=== PATIENT | female | born 2000 | race Caucasian/White ===

== ENCOUNTER 2019-03-04 21:14 | Emergency (ER) | payer MEDICAID ==
[~2019-03-04] VITALS: Ht 170.2 cm; Wt 65.8 kg
[2019-03-04 21:18] VITALS: Ht 170.2 cm; Wt 65.8 kg
[2019-03-04 22:21] LABS: UA SPECIFIC GRAVITY 1.025 (1.005-1.035); microscopic required? YES; urine erythrocyte 2+ (NEGATIVE)
[2019-03-04 22:22] LABS: BASOPHIL % 1.4 % (0-2); PLATELET COUNT 345 x10^3mcL (130-400); RED CELL DISTRIBUTION WIDTH 13.9 % (11.5-14.5)
[2019-03-05 00:10] VITALS: BP 122/73
== END 2019-03-05 00:10 | disposition home or self-care (01) ==
LOC: ED 21:14
PROVIDERS: Emergency Medicine
DX: N94.6 Dysmenorrhea, unspecified (principal)
CPT/HCPCS: 36415; J1885

== ENCOUNTER 2019-09-13 01:38 | Emergency (ER) | payer OTHER ==
[~2019-09-13] VITALS: Ht 165.1 cm; Wt 71.0 kg
[2019-09-13 01:47] VITALS: BP 116/76
== END 2019-09-13 03:45 | disposition left against medical advice (07) ==
LOC: ED 01:38
DX: Z53.21 Procedure and treatment not carried out due to patient leaving prior to being seen by health care provider (principal)